=== PATIENT | female | born 1990 | race Caucasian/White ===

== ENCOUNTER 2018-09-25 07:30 | Day surgery (SDC) | payer BC ==
[~2018-09-25 07:30] MED LIST: Lactated Ringers 1,000 ML IV SCH; ceFAZolin 2 GM in Premix Bag 1 BAG IV ONE
[2018-09-25] MEDS ORDERED: Lidocaine 2% 5 ML SDV ONE (08:10)
[2018-09-25] MEDS ORDERED: Octyl 2-Cyanoacrylate 1 Tube ONE ×2 (08:10→10:27)
[2018-09-25] MEDS ORDERED: Midazolam 1 MG/ML 2 ML SDV ONE (08:10)
[2018-09-25] MEDS ORDERED: Bupivacaine 25%/EPINEPHrine/PF 30 ML ONE (08:10)
[2018-09-25] MEDS ORDERED: Propofol 200 MG/20 ML SDV ONE (08:10)
[2018-09-25] MEDS ORDERED: fentaNYL 100 MCG/2 ML SDV ONE (08:10)
[2018-09-25] MEDS ORDERED: Rocuronium 100 MG/10 ML MDV ONE (08:51)
[2018-09-25] MEDS ORDERED: ceFAZolin/Dextrose,Iso-Osmotic 2 GM/50 ML Duplex Bag IV ONE (09:04)
--- NOTE | 2018-09-25 10:05 | PCM.PREANE ---
Preanesthetic Assessment - Anesthesia/Transfusion/Family Hx Anesthesia History: Prior Anesthesia Without Reaction Family History of Anesthesia Reaction: No Transfusion History: No Prior Transfusion(s) - Review of Systems General: No Symptoms Pulmonary: No Symptoms Cardiovascular: No Symptoms Gastrointestinal: No Symptoms Neurological: No Symptoms Other: Reports: None - Physical Assessment NPO Status Date: 09/24/18 NPO Status Time: 22:00 O2 Sat by Pulse Oximetry: 98 Respiratory Rate: 16 Vital Signs: Last Vital Signs Temp 97.5 F 09/25/18 08:00 Pulse 62 09/25/18 08:00 Resp 16 09/25/18 08:00 BP 111/72 09/25/18 08:00 Pulse Ox 98 09/25/18 08:00 Height: 5 ft 8 in Weight: 66.678 kg ASA Class: 1 Mental Status: Alert & Oriented x3 Airway Class: Mallampati = 2 Dentition: Reports: Normal Dentition ROM/Head Extension: Full Lungs: Clear to Auscultation, Normal Respiratory Effort Cardiovascular: Regular Rate, Regular Rhythm - Lab Values: Laboratory Last Values Urine HCG, Qual NEGATIVE (NEGATIVE) 09/25/18 06:55 - Allergies Allergies/Adverse Reactions: Allergies Allergy/AdvReac Type Severity Reaction Status Date / Time No Known Allergies Allergy Verified 09/18/18 09:30 - Blood Blood Available: No - Anesthesia Plan Pre-Op Medication Ordered: None - Acknowledgements Anesthesia Type Planned: MAC Pt an Appropriate Candidate for the Planned Anesthesia: Yes Alternatives and Risks of Anesthesia Discussed w Pt/Guardian: Yes Pt/Guardian Understands and Agrees with Anesthesia Plan: Yes PreAnesthesia Questionnaire Musculoskeletal History: Reports: Fracture Other Musculoskeletal History: hx of fx wrist - Past Surgical History Musculoskeletal Surgical History: Reports: Other (See Below) Other Musculoskeletal Surgeries/Procedures:: excision of cyst left shoulder - SUBSTANCE USE Smoking Status *Q: Never Smoker Recreational Drug Use History: No - HOME MEDS Home Medications: Home Meds Ethynodiol D-Ethinyl Estradiol [Kelnor 1-35 28 Tablet] 1 tab PO DAILY 09/18/18 [ History] - CURRENT (IN HOUSE) MEDS Current Meds: Current Medications Lactated Ringer's (Ringers, Lactated) 1,000 mls @ 125 mls/hr IV ASDIRECTED [facility] Last Admin: 09/25/18 08:30 Dose: 125 mls/hr Discontinued Medications Cefazolin Sodium/Dextrose (Ancef) Confirm Administered Dose 2 gm IV .STK-MED ONE Stop: 09/25/18 09:05 Fentanyl (Sublimaze) Confirm Administered Dose 100 mcg .ROUTE .STK-MED ONE Stop: 09/25/18 08:11 Cefazolin Sodium/Dextrose 2 gm (/ Premix) 50 mls @ 100 mls/hr IV ONETIME ONE Stop: 09/25/18 05:29 Bupivacaine HCl/Epinephrine Bitart (Sensorc Mpf 0.25%-Epi 1:[id number]) Confirm Administered Dose 30 mls @ as directed .ROUTE .STK-MED ONE Stop: 09/25/18 08:11 Lidocaine (Xylocaine-Mpf 2%) Confirm Administered Dose 5 ml .ROUTE .STK-MED ONE Stop: 09/25/18 08:11 Midazolam HCl (Versed 1 Mg/Ml) Confirm Administered Dose 2 mg .ROUTE .STK-MED ONE Stop: 09/25/18 08:11 Octyl Cyanoacrylate (Dermabond Advance) Confirm Administered Dose 1 applic .ROUTE .STK-MED ONE Stop: 09/25/18 08:11 Propofol (Diprivan 20 Ml) Confirm Administered Dose 200 mg .ROUTE .STK-MED ONE Stop: 09/25/18 08:11 Rocuronium [place] (Zemuron) Confirm Administered Dose 100 mg .ROUTE .STK-MED ONE Stop: 09/25/18 08:52
[2018-09-25] MEDS ORDERED: Ketorolac 30 MG/ML SDV ONE (10:09)
[2018-09-25] MEDS ORDERED: Ondansetron 4 MG/2 ML SDV ONE (10:09)
--- NOTE | 2018-09-25 10:42 | PCM.OPNOTE ---
- General Post-Op/Procedure Note Date of Surgery/Procedure: 09/25/18 Operative Procedure(s): back mass excisional bx Findings: well encapulated lipoma 4 x 3 CM; [id number] Pre Op Diagnosis: BACK MASS Post-Op Diagnosis: Same Anesthesia Technique: Moderate Sedation Primary Surgeon: Alex Yates Pathology: sent Complications: None Condition: Good
--- NOTE | 2018-09-25 10:49 | PCM48HPAN ---
Post Anesthesia Note - EVALUATION WITHIN 48HRS OF ANESTHETIC Vital Signs in Normal Range: Yes Patient Participated in Evaluation: Yes Respiratory Function Stable: Yes Airway Patent: Yes Cardiovascular Function Stable: Yes Hydration Status Stable: Yes Pain Control Satisfactory: Yes Nausea and Vomiting Control Satisfactory: Yes Mental Status Recovered: Yes Resp Rate: 16
--- NOTE | 2018-09-25 10:49 | PCM.POSTAN ---
POST ANESTHESIA ASSESSMENT - OBSERVATIONS Free Text/Narrative:: Deferred, pt bypassed PACU
--- NOTE | 2018-09-25 14:34 | OR ---
SURGEON: Alex Yates MD DATE OF PROCEDURE: 09/25/2018 PREOPERATIVE DIAGNOSIS: Back mass. POSTOPERATIVE DIAGNOSIS: Back mass. PROCEDURE PERFORMED: Excision biopsy. COMPLICATIONS: None. FINDINGS: Back mass is a little bit toward the right from the spine, a little bit above the scapula angle. Removed a 4 x 3 cm of well-encapsulated lipoma. PROCEDURE IN DETAIL: The patient was taken to the operating room and placed in a supine position. The patient was re-positioned into a left decub position, left side down, right side up. The patient was giving mild general sedation. The patient was then prepped and draped in a sterile fashion. Time-out was then called, patient identified, procedure identified, antibiotic given. Procedure then started. The mass was located a little bit above the scapula angle on the right side and a little bit to the right side from the spine. A local anesthetic was infiltrated. Using a skin scalpel, a vertical incision was made about 4.1 cm and carefully dissected down. A lipoma was observed and was removed, and it was well encapsulated. This was sent for pathology. Hemostasis was achieved by the use of electrocautery, and then it was irrigated and closed with 3-0 Vicryl followed with 4-0 Monocryl and Dermabond. The patient was then re-positioned into a supine position, awakened, and transferred to the recovery room in hemodynamically stable condition. The patient tolerated the procedure well. There were no intraoperative complications, and Dr. Yates was present throughout the whole procedure. ALEXIS / HYUN /[id number]
== END 2018-09-25 11:10 | disposition home or self-care (01) ==
LOC: MW.SDS 07:30
PROVIDERS: ATTEND Surgery
DX: D17.1 Benign lipomatous neoplasm of skin and subcutaneous tissue of trunk (principal); Z79.3 Long term (current) use of hormonal contraceptives; Z87.891 Personal history of nicotine dependence
CPT/HCPCS: 21931; 81025; A9270; J0690; J1885; J2001; J2250; J2405; J2704; J3010; J7120; 88304